=== PATIENT | male | born 1955 | race Caucasian/White ===

== ENCOUNTER 2017-07-17 19:15 | Inpatient (IN) ==
--- NOTE | 2017-07-17 20:06 | Emergency Department Note ---
Disposition Clinical Impression: Elevated blood pressure reading TIA (transient ischemic attack) Qualifiers: Transient cerebral ischemia type: unspecified Qualified Code(s): G45.9 - Transient cerebral ischemic attack, unspecified Disposition: Admitted As Inpatient Condition: Good General Adult HPI - General Chief complaint: ED Neuro Symptoms/Deficit Stated complaint: dizzy,headache,arms/legs tingling,trouble w/speech Time Seen by Provider: 07/17/17 19:51 Source: patient Limitations: no limitations Nursing Notes Reviewed: Yes Vital Signs Reviewed: Yes - History of Present Illness HPI Narrative: Patient presents for evaluation of garbled speech as well as right-sided numbness. Symptoms started at 7 PM. Symptoms lasted for approximately 5-10 minutes. Symptoms self resolved. Patient was driving at the time. Patient stopped and switched places with his . states that he was slow getting to his car but there was no obvious deficits. Patient had similar episode of garbled speech that lasted for several minutes in the past with outpatient head CT. Patient has not been admitted for further workup. Symptoms continue to be resolved at the time of evaluation. NIH stroke scale of 0. Concern for TIA. Patient has a history of hypertension as well as hypercholesterol. On daily aspirin. Pain Scale: 6 - Related Data Home Medications Medication Instructions Recorded Confirmed Allopurinol [Zyloprim 300 MG] 300 mg PO DAILY 07/17/17 07/17/17 Aspirin Enteric Coated [Aspirin EC] 81 mg PO DAILY 07/17/17 07/17/17 Cetirizine HCl [Zyrtec] 10 mg PO DAILY 07/17/17 07/17/17 Latanoprost [Xalatan] 1 drop OP HS 07/17/17 07/17/17 Levothyroxine [Synthroid] 25 mcg PO 0630 07/17/17 07/17/17 Lisinopril [Zestril] 10 mg PO DAILY 07/17/17 07/17/17 Meloxicam [Meloxicam] 15 mg PO DAILY 07/17/17 07/17/17 Omeprazole [PriLOSEC] 40 mg PO DAILY 07/17/17 07/17/17 Rosuvastatin Calcium [Rosuvastatin 10 mg PO HS 07/17/17 07/17/17 Calcium] Allergies Allergy/AdvReac Type Severity Reaction Status Date / Time No Known Allergies Allergy Verified 07/17/17 21:25 Review of Systems: CONSTITUTIONAL: No weight loss, fever, chills, weakness or fatigue. HEENT: Eyes: No visual changes. Ears, Nose, Throat: No hearing loss, difficulty talking or unable to swallow. SKIN: No rash or itching. CARDIOVASCULAR: No chest pain, chest pressure or chest discomfort. No palpitations or edema. RESPIRATORY: No shortness of breath, cough or sputum. GASTROINTESTINAL: No anorexia, nausea, vomiting or diarrhea. No abdominal pain or blood. GENITOURINARY: No burning on urination or hematuria. NEUROLOGICAL: Dysarthria with associated paresthesias the right side of his face and upper and lower extremity MUSCULOSKELETAL: No muscle pain, back pain, joint pain or stiffness. Past Medical History - Past Medical History Medical history: Reports: hyperlipidemia, hypertension Psychiatric history: Reports: no psych history - Social History Smoking Status: Never smoker Smokeless Tobacco Status: No Alcohol use: Reports: none Drug use: Reports: none Physical Exam - General Limitations: no limitations General appearance: alert, in no apparent distress - Head Head exam: atraumatic - Eye Eye exam: Present: normal appearance, PERRL, EOMI - ENT ENT exam: normal exam - Neck Neck exam: Present: normal inspection - Chest Chest inspection: Present: normal inspection, symmetric chest wall rise - Respiratory Respiratory exam: Present: normal lung sounds bilaterally. Absent: respiratory distress, wheezes - Cardiovascular Cardiovascular exam: Present: regular rate, normal rhythm - Abdominal Exam Abdominal exam: Present: soft, Non-Tender - Extremities Exam Extremities exam: Present: normal inspection. Absent: tenderness - Back Exam Back exam: Present: normal inspection. Absent: CVA tenderness (R), CVA tenderness (L) - Neurological Exam Neurological exam: Present: alert, oriented X3, CN II-XII intact, normal gait, motor sensory deficit - Expanded Neurological Exam Patient oriented to: Present: person, place, time Speech: Present: fluid speech Cranial nerves: EOM function (II, III, IV, ): Normal, facial sensation (V): Normal, facial palsy (VII): Normal, gag reflex (IX): Normal, spinal accessory function (XI): Normal, tongue deviation (XII): Normal Cerebellar function: finger to nose: Normal, heel to pimentel: Normal Cerebellar function: normal gait Motor strength - LUE: 5/5 Motor strength - RUE: 5/5 Motor strength - LLE: 5/5 Motor strength - RLE: 5/5 Coma Scale Eye Opening: Spontaneous Coma Scale Motor Response: Obeys Commands Coma Scale Verbal Response: Oriented Coma Scale Total: 15 - Psychiatric Psychiatric exam: Present: normal affect, normal mood - Skin Skin exam: Present: warm, dry, intact Course - Reevaluation(s) Reevaluation #1: Patient continues to remain asymptomatic. - Consultations Consultation #1: Discussed with Dr. Morton. Patient accepted for admission Vital Signs Temperature 98.4 F 07/17/17 19:42 Pulse Rate 77 07/17/17 19:42 Respiratory Rate 18 07/17/17 19:42 Blood Pressure 192/119 07/17/17 19:42 O2 Sat by Pulse Oximetry 96 07/17/17 19:42 Temperature 98.4 F 07/17/17 19:42 Pulse Rate 80 07/17/17 20:10 Respiratory Rate 12 07/17/17 21:58 Blood Pressure 148/98 07/17/17 21:58 O2 Sat by Pulse Oximetry 96 07/17/17 19:42 Oxygen Delivery Oxygen Delivery Room Air Medical Decision Making - Medical Records Medical records reviewed: Yes I reviewed the patient's medical records. - Lab Data Lab results reviewed: Yes I reviewed the patient's lab results. Result diagrams: 07/17/17 20:37 07/17/17 20:37 Lab Results 07/17/17 07/17/17 07/17/17 Range/Units 19:53 20:15 20:37 WBC 7.0 (4.3-11.1) K/mcL RBC 5.10 (4.19-5.50) M/mcL Hgb 15.5 (12.9-16.9) g/dL Hct 44.6 (37.5-50.1) % MCV 87.5 (83.0-100.0) fL MCH 30.4 (28.0-33.3) pg MCHC 34.8 (31.6-35.5) g/dL RDW 13.2 (11.5-14.5) % Plt Count 179 (140-400) K/mcL MPV 10.2 (9.4-12.4) fL Immature Gran % 0.3 (0-4) % Seg Neutrophils % 58.4 % Lymphocytes % 27.0 % Monocytes % 10.8 % Eosinophils % 2.6 % Basophils % 0.9 % Neutrophils # 4.1 (1.6-8.9) K/mcL Lymphocytes # 1.9 (0.6-4.6) K/mcL Monocytes # 0.8 (0.0-1.3) K/mcL Eosinophils # 0.2 (0.0-0.6) K/mcL Basophils # 0.1 (0.0-0.2) K/mcL Immature Plt Fraction 6.2 H (1.1-6.1) % PT (9.4-12.1) Seconds INR Sodium (136-145) mEq/L Potassium (3.5-4.5) mEq/L Chloride (98-109) mEq/L Carbon Dioxide (19-29) mEq/L BUN (8-26) mg/dL Creatinine (0.72-1.25) mg/dL Est GFR ( Amer) (> 60) Est GFR (Non-Af Amer) (> 60) BUN/Creatinine Ratio (6-26) Glucose (70-99) mg/dL POC Glucose 100 H (58-89) Calculated Osmolality (280-300) Calcium (8.6-10.8) mg/dL Troponin I (0-0.03) ng/mL Urine Color (Yellow) Urine Clarity (Clear) Urine pH (5.0-8.0) pH Units Ur Specific [place] (1.010-1.025) Urine Protein (Neg-Trace) mg/dL Urine Glucose (UA) (Normal) mg/dL Urine Ketones (Negative) mg/dL Urine Blood (Negative) Urine Nitrite (Negative) Urine Bilirubin (Negative) Urine Urobilinogen (Normal) mg/dL Ur Leukocyte Esterase (Negative) Ur Culture Indicated? (NO) Specimen Rejected Hemolyzed 07/17/17 07/17/17 07/17/17 Range/Units 20:37 20:37 20:37 WBC (4.3-11.1) K/mcL RBC (4.19-5.50) M/mcL Hgb (12.9-16.9) g/dL Hct (37.5-50.1) % MCV (83.0-100.0) fL MCH (28.0-33.3) pg MCHC (31.6-35.5) g/dL RDW (11.5-14.5) % Plt Count (140-400) K/mcL MPV (9.4-12.4) fL Immature Gran % (0-4) % Seg Neutrophils % % Lymphocytes % % Monocytes % % Eosinophils % % Basophils % % Neutrophils # (1.6-8.9) K/mcL Lymphocytes # (0.6-4.6) K/mcL Monocytes # (0.0-1.3) K/mcL Eosinophils # (0.0-0.6) K/mcL Basophils # (0.0-0.2) K/mcL Immature Plt Fraction (1.1-6.1) % PT 11.5 (9.4-12.1) Seconds INR 1.1 Sodium 139 (136-145) mEq/L Potassium 4.0 (3.5-4.5) mEq/L Chloride 105 (98-109) mEq/L Carbon Dioxide 25 (19-29) mEq/L BUN 18 (8-26) mg/dL Creatinine 1.36 H (0.72-1.25) mg/dL Est GFR ( Amer) > 60 (> 60) Est GFR (Non-Af Amer) 53 L (> 60) BUN/Creatinine Ratio 13 (6-26) Glucose 101 H (70-99) mg/dL POC Glucose (58-89) Calculated Osmolality 290 (280-300) Calcium 9.9 (8.6-10.8) mg/dL Troponin I 0.00 (0-0.03) ng/mL Urine Color (Yellow) Urine Clarity (Clear) Urine pH (5.0-8.0) pH Units Ur Specific [place] (1.010-1.025) Urine Protein (Neg-Trace) mg/dL Urine Glucose (UA) (Normal) mg/dL Urine Ketones (Negative) mg/dL Urine Blood (Negative) Urine Nitrite (Negative) Urine Bilirubin (Negative) Urine Urobilinogen (Normal) mg/dL Ur Leukocyte Esterase (Negative) Ur Culture Indicated? (NO) Specimen Rejected 07/17/17 Range/Units 21:45 WBC (4.3-11.1) K/mcL RBC (4.19-5.50) M/mcL Hgb (12.9-16.9) g/dL Hct (37.5-50.1) % MCV (83.0-100.0) fL MCH (28.0-33.3) pg MCHC (31.6-35.5) g/dL RDW (11.5-14.5) % Plt Count (140-400) K/mcL MPV (9.4-12.4) fL Immature Gran % (0-4) % Seg Neutrophils % % Lymphocytes % % Monocytes % % Eosinophils % % Basophils % % Neutrophils # (1.6-8.9) K/mcL Lymphocytes # (0.6-4.6) K/mcL Monocytes # (0.0-1.3) K/mcL Eosinophils # (0.0-0.6) K/mcL Basophils # (0.0-0.2) K/mcL Immature Plt Fraction (1.1-6.1) % PT (9.4-12.1) Seconds INR Sodium (136-145) mEq/L Potassium (3.5-4.5) mEq/L Chloride (98-109) mEq/L Carbon Dioxide (19-29) mEq/L BUN (8-26) mg/dL Creatinine (0.72-1.25) mg/dL Est GFR ( Amer) (> 60) Est GFR (Non-Af Amer) (> 60) BUN/Creatinine Ratio (6-26) Glucose (70-99) mg/dL POC Glucose (58-89) Calculated Osmolality (280-300) Calcium (8.6-10.8) mg/dL Troponin I (0-0.03) ng/mL Urine Color Yellow (Yellow) Urine Clarity Clear (Clear) Urine pH 5.5 (5.0-8.0) pH Units Ur Specific [place] 1.025 (1.010-1.025) Urine Protein Negative (Neg-Trace) mg/dL Urine Glucose (UA) Normal (Normal) mg/dL Urine Ketones Negative (Negative) mg/dL Urine Blood Negative (Negative) Urine Nitrite Negative (Negative) Urine Bilirubin Negative (Negative) Urine Urobilinogen Normal (Normal) mg/dL Ur Leukocyte Esterase Negative (Negative) Ur Culture Indicated? NO (NO) Specimen Rejected - Radiology Data Radiology results reviewed: Yes I reviewed the patient's radiology results. - EKG Data EKG #1 EKG attestation: Yes I reviewed and interpreted this EKG. EKG results narrative: EKG shows sinus rhythm with ventricular rate of 71. SD 174. QRS 106. QTC 399. Patient has no significant ST elevations or depressions. EKG unremarkable. No previous EKG for comparison. Attestation Statement - Attestation Attestation: I examined this patient and my medical decision-making was reviewed with the Resident Physician, Dr. Logan. I agree with the documented findings, disposition and treatment plan as described except to the extent set forth below. Patient is a 62-year-old white male with a history of hypertension and high cholesterol presents to the emergency department brought by his today for complaints of acute onset of garbled speech and right-sided numbness which occurred at approximately 7 PM. Symptoms were transient lasting 5-10 minutes and then had resolved. Patient on arrival is asymptomatic and denies any chest pain shortness of breath diaphoresis numbness tingling no slurred speech no facial droop no dizziness or vertigo. Patient denies any visual changes or headache at this time. Patient's states he has been under a great deal of stress as of recently due to his mothers declining health. Patient states he has had similar symptoms in the past and never came to the hospital but was seen by his family doctor and did have an outpatient CT scan done which was normal. No prior hospitalizations for evaluation of strokelike symptoms. Patient's NIH score on arrival he equal 0 symptoms concerning for TIA. I agree with patient's physical exam findings as documented. Patient was quite hypertensive on arrival but this improved clinically without treatment in the emergency department. Patient had an EKG performed which was without ischemic changes. Patient's noncontrast head CT and chest x-ray were within normal limits. H&H lab evaluation shows mild elevation in serum creatinine with no old value for comparison. Remainder of labs are unremarkable. Case was discussed with the hospitalist who accepted the patient for admission for further evaluation of TIA.
[2017-07-17 20:50] LABS: Basophils # 0.1 K/mcL (0.0-0.2); Basophils % 0.9 %; Eosinophils # 0.2 K/mcL (0.0-0.6); Eosinophils % 2.6 %; Hematocrit 44.6 % (37.5-50.1); Hemoglobin 15.5 g/dL (12.9-16.9); Immature Granulocytes % 0.3 % (0-4); Immature Platelets 6.2 % (1.1-6.1); Lymphocytes # 1.9 K/mcL (0.6-4.6); Mean Corpuscular HGB Conc 34.8 g/dL (31.6-35.5); Mean Corpuscular Hemoglobin 30.4 pg (28.0-33.3); Mean Corpuscular Volume 87.5 fL (83.0-100.0); Mean Platelet Volume 10.2 fL (9.4-12.4); Monocytes # 0.8 K/mcL (0.0-1.3); Monocytes % 10.8 %; Neutrophils # 4.1 K/mcL (1.6-8.9); Platelet Count 179 K/mcL (140-400); Red Cell Distribution Width 13.2 % (11.5-14.5); Segmented Neutrophils % 58.4 %
[2017-07-17 21:03] LABS: BUN/Creatinine Ratio 13 (6-26); Blood Urea Nitrogen 18 mg/dL (8-26); Calcium 9.9 mg/dL (8.6-10.8); Carbon Dioxide 25 mEq/L (19-29); Chloride 105 mEq/L (98-109); Glucose 101 mg/dL (70-99); Osmolality,Calculated 290 (280-300); Sodium 139 mEq/L (136-145); eGFR For African Americans > 60 (> 60); eGFR For Non-African Americans 53 (> 60)
[2017-07-17 21:11] LABS: INR 1.1; Prothrombin Time 11.5 Seconds (9.4-12.1)
[2017-07-17 22:17] LABS: Bilirubin,Urine Negative (Negative); Blood,Urine Negative (Negative); Clarity,Urine Clear (Clear); Color,Urine Yellow (Yellow); Glucose,Urine (UA) Normal (Normal); Ketones,Urine Negative (Negative); Leukocyte Esterase,Urine Negative (Negative); Nitrite,Urine Negative (Negative); PH,Urine 5.5 pH Units (5.0-8.0); Protein,Urine Negative (Neg-Trace); Specific Gravity,Urine 1.025 (1.010-1.025); Urobilinogen,Urine Normal (Normal)
[2017-07-17] MEDS ORDERED: Acetaminophen 325 MG TABLET PO PRN (23:19)
[2017-07-17] MEDS ORDERED: *HR* Morphine 2 MG/ML SYRINGE IVP PRN (23:19)
[2017-07-17] MEDS ORDERED: Naloxone 0.4 MG/ML INJ IVP PRN (23:19)
--- NOTE | 2017-07-17 23:28 | Internal Med History&Physical ---
Date of Encounter: 07/18/17 Time of Encounter: 23:27 Assessment and Plan (1) TIA (transient ischemic attack) Current visit: Yes Status: Acute Suspected Obtain Brain MRI, ECHO, carotid doppler Patient has no neurologic deficits on exam and symptoms resolved prior to arrival Continue home doses of ASA and Crestor Obtain lipis panel a.m No indication for Speech/PT/OT/Neuro eval at this time Qualifiers: Transient cerebral ischemia type: unspecified Qualified Code(s): G45.9 - Transient cerebral ischemic attack, unspecified (2) HTN (hypertension) Current visit: Yes Status: Chronic Uncontrolled Resume home meds and titrate prn Qualifiers: Hypertension type: essential hypertension Qualified Code(s): I10 - Essential (primary) hypertension (3) HLD (hyperlipidemia) Current visit: Yes Status: Chronic check lipid panel a.m COntinue Crestor Qualifiers: Hyperlipidemia type: unspecified Qualified Code(s): E78.5 - Hyperlipidemia , unspecified (4) Renal insufficiency Current visit: Yes Status: Acute CR 1.36 on presentation BUN is WNL. Other electrolytes WNL UA is unremarkable No prior hx of renal disease Patient taking NSAIDS and ACEI at home D/C NSAIDS IVF Check renal USS Repeat Chem am Internal Medicine - H&P: HPI Chief complaint: Right hand numbness, garbled speech Admitted From: Home Plans for Post Hospital Care: Home History of present illness: Mr. Tafoya is a 62 year old male with PMH of HTN, HLD, Hypothyroidism Seen and evaluated at bedside with spouse He was driving around 7p,m when he experienced numbness of his right hand and arm, and when he tried to speak, his words were not clear, this was witnessed by his who switched places with him. He states all his symptoms resolved within 20-30 minutes At time of review, he had no neurologic symptoms. He reports history of same , with outpatient head CT that was negative. He reports compliance with his medications. Denies palpitations, chest pain, abdominal symptoms. ROS is not contributory Admitting EKG and Head CT unremarkable, labs unremarkable. Blood pressure on presentation was elevated to 192/119, spontaneously improved at time of review Past Med Surg Social Fam HX - Past Medical History Medical history: hyperlipidemia, hypertension Psychiatric history: no psych history - Social History Smoking Status: Never smoker Smokeless Tobacco Status: No Alcohol use: none Drug use: none - Family History Mother Hx Family Neurologic Disorders: Yes (TRANSIENT ISCHEMIC ATTACK.) Internal Medicine - H&P: Meds Allopurinol [Zyloprim 300 MG] 300 mg PO DAILY 07/17/17 [History] Aspirin Enteric Coated [Aspirin EC] 81 mg PO DAILY 07/17/17 [History] Cetirizine HCl [Zyrtec] 10 mg PO DAILY 07/17/17 [History] Latanoprost [Xalatan] 1 drop OP HS 07/17/17 [History] Levothyroxine [Synthroid] 25 mcg PO 0630 07/17/17 [History] Lisinopril [Zestril] 10 mg PO DAILY 07/17/17 [History] Meloxicam [Meloxicam] 15 mg PO DAILY 07/17/17 [History] Omeprazole [PriLOSEC] 40 mg PO DAILY 07/17/17 [History] Rosuvastatin Calcium [Rosuvastatin Calcium] 10 mg PO HS 07/17/17 [History] 3 Allergy/AdvReac Type Severity Reaction Status Date / Time No Known Allergies Allergy Verified 07/17/17 21:25 All Systems PM: A 10-system review of systems was performed and is negative for pertinent findings except as documented above in the HPI. - Constitutional Constitutional: as per HPI - EENT Eyes: as per HPI Ears: as per HPI Nose, mouth and throat: as per HPI - Cardiovascular Cardiovascular ROS IM: as per HPI - Respiratory Respiratory: as per HPI - Gastrointestinal Gastrointestinal: no abdominal pain, no diarrhea, no hematemesis, no hematochezia, no melena, no nausea, no vomiting - Musculoskeletal Musculoskeletal ROS IM: no numbness, no tingling - Integumentary Integumentary IM: no rash, no unusual bruising - Neurological Neurological ROS: as per HPI - Hematologic/Lymphatic Hematologic/Lymphatic: no easy bruising - Constitutional Vitals: Temp Pulse Resp BP Pulse Ox 98.3 F 65 16 153/92 96 07/17/17 23:11 07/17/17 23:11 07/17/17 23:11 07/17/17 23:11 07/17/17 23:11 General appearance: Present: A&O X 3, pleasant, no acute distress, obese - Head Head exam: Present: atraumatic, normocephalic - Eye Eye exam: Present: PERRL, conjuntiva pink, sclera anicteric Pupils: Present: PERRL - Neck Neck exam general surgery: Present: supple, trachea midline. Absent: lymphadenopathy - Respiratory Respiratory exam: Present: CTAB. Absent: accessory muscle use, rales, rhonchi, wheezes - Cardiovascular Cardiovascular exam: Present: RRR, +S1, +S2. Absent: diastolic murmur, gallop, rubs, systolic murmur - GI/Abdominal GI/Abdominal exam: Present: normal bowel sounds, soft, no peritoneal signs. Absent: distended, tenderness - Extremities Exam Extremities exam: Present: warm, radial pulses palpable and symmetrical. Absent : calf tenderness, cyanotic, pedal edema - Neurological Exam Neurological exam: Present: alert, CN II-XII intact, oriented X3, no focal deficits. Absent: pronater drift, facial droop, speech deficit - Skin Skin exam: Present: dry, intact Internal Med - H&P Results - Labs CBC & Chem 7: 07/17/17 20:37 07/17/17 20:37
[2017-07-18 06:18] LABS: BUN/Creatinine Ratio 13 (6-26); Blood Urea Nitrogen 18 mg/dL (8-26); Calcium 9.5 mg/dL (8.6-10.8); Carbon Dioxide 28 mEq/L (19-29); Chloride 105 mEq/L (98-109); Chol/HDL Ratio 4.2 (0-4.9); Cholesterol 140 mg/dL (< 200); Glucose 102 mg/dL (70-99); HDL Cholesterol 33 mg/dL (40-59); LDL Cholesterol,Calculated 80 mg/dL (0-99); Osmolality,Calculated 292 (280-300); Potassium 3.8 mEq/L (3.5-4.5); Sodium 140 mEq/L (136-145); Triglycerides 135 mg/dL (< 150); eGFR For African Americans > 60 (> 60); eGFR For Non-African Americans 53 (> 60)
[2017-07-18] MEDS: Aspirin Enteric Coated 81 MG Tablet PO SCH (08:22)
[2017-07-18] MEDS: Levothyroxine 25 MCG TABLET PO SCH (08:22)
[2017-07-18] MEDS: Loratadine 10 MG TABLET PO SCH (08:23)
[2017-07-18] MEDS: 0.9 % Sodium Chloride 1,000 ML IVC SCH ×2 (11:43→23:18)
--- NOTE | 2017-07-18 17:22 | Internal Med Progress Note ---
Date of Encounter: 07/18/17 Time of Encounter: 11:00 - Assessment and plan (1) CVA (cerebral vascular accident) Current Visit: Yes Status: Acute Assessment and plan: Roger Tafoya is a 62 y/o male with PMH HTN and obesity who presented to [facility] on 07/17/2017 with complaints of bilateral upper ext and right lower numbness and tingling. He was found to have an acute CVA and was admitted for further work-up and treatment. 1. CVA: presented with transient numbness and tingling to bilateral upper extremities. MRI brain with microinfartcs to bilateral frontal lobes. Neurologically intact, no deficit. On ASA at . TTE, bilateral carotids, Hgb A1c and LDL pending. Neurology who recommends adding Plavix and JYOTI to assess for embolic source 2. RAFI: Cr 1.03, no hx renal disease. Suspect pre-renal with poor PO intact and use of KOBE. IV fluids, stop KOBE, renal US pending. Monitor repeat CMP 3. Hypertension: per hx. Holding home BP medications to allow for permissive HTN (SBP up to 180). 4. 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 Information obtained from chart review and patient report. Says he is back to baseline and wants to discharge home. Made him aware of MRI results and he is agreeable to stay for Neurology evaluation - Constitutional Vitals: Temp Pulse Resp BP Pulse Ox 98.0 F 86 14 146/87 96 07/18/17 15:04 07/18/17 15:04 07/18/17 15:04 07/18/17 15:04 07/18/17 15:04 General appearance: Present: A&O X 3, pleasant, no acute distress, obese - Head Head exam: Present: atraumatic, normocephalic - Eye Eye exam: Present: PERRL, conjuntiva pink, sclera anicteric Pupils: Present: PERRL - Neck Neck exam general surgery: Present: supple, trachea midline. Absent: lymphadenopathy - Respiratory Respiratory exam: Present: CTAB. Absent: accessory muscle use, rales, rhonchi, wheezes - Cardiovascular Cardiovascular exam: Present: RRR, +S1, +S2. Absent: diastolic murmur, gallop, rubs, systolic murmur - GI/Abdominal GI/Abdominal exam: Present: normal bowel sounds, soft, no peritoneal signs. Absent: distended, tenderness - Extremities Exam Extremities exam: Present: warm, radial pulses palpable and symmetrical. Absent : calf tenderness, cyanotic, pedal edema - Neurological Exam Neurological exam: Present: CN II-XII intact, oriented X3, no focal deficits. Absent: pronater drift, facial droop, speech deficit - Skin Skin exam: Present: dry, intact Internal Medicine: Result - Labs CBC & Chem 7: 07/17/17 20:37 07/18/17 04:40 Labs: BMP 07/18/17 04:40 Sodium 140 Potassium 3.8 Chloride 105 Carbon Dioxide 28 BUN 18 Creatinine 1.36 H Glucose 102 H Calcium 9.5 - ABG Interpretation ABG results: PT/INR, D-dimer PT 11.5 Seconds (9.4-12.1) 07/17/17 20:37 - Impressions Impressions Brain MRI 07/17/17 23:20 IMPRESSION: Acute microinfarcts within the left and right frontal lobes. The findings were sent to the Radiology Results Communication Center at 3:35 pm on 07/18/2017to be communicated to a licensed caregiver. D/ / Byron Bishop MD / Byron Bishop MD Interpreting Provider: Byron Bishop MD Retroperitoneum Ultrasound 07/18/17 15:30 IMPRESSION: Unremarkable bilateral renal ultrasound. Unremarkable urinary bladder ultrasound with small postvoid residual. D/ / Jac Choudhury MD / Jac Choudhury MD Interpreting Provider: Jac Choudhury MD Consult Discharge Plan - Plan Referrals: NONE,PCP [Primary Care Provider] -
--- NOTE | 2017-07-18 17:39 | Neurology - Consult Note ---
Date of Encounter: 07/18/17 Time of Encounter: 17:38 Assessment and Plan (1) CVA (cerebral vascular accident) Current Visit: Yes Status: Acute This patient with HTN, obesity, NELLY on CPAP who developed acute onset of focal neurological deficits, right hand numbness, speech difficulty, likely related to new cerebral infarct, evidenced on the MRI of bran. The acute cerebral infarct involve both hemisphere therefore indicate likely embolic phenomenon. He was on Aspirin 81mg daily prior to stroke. Will add plavix 75mg daily. Permissive HTN in acute phase (7-10 day). Continue statin therapy. Recommend JYOTI looking for source of emboli. Await carotid artery duplex study. Patient lives two hours away. 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 Continue home CPAP therapy for NELLY. Weight loss encouraged Qualifiers: CVA mechanism: unspecified Qualified Code(s): I63.9 - Cerebral infarction, unspecified History of Present Illness Chief complaint: right hand numbness and speech difficulty HPI: Mr. Tafoya is a 62 year old male with PMH significant for HTN, NELLY on CPAP, obesity and HDL who developed acute onset of right hand numbness and speech difficulty when driving. This occurred yesterday at around 7pm when driving. Reports right hand numbness and then had trouble with his words and his then took over the driving and brought him to ER here at [facility]. By the time he arrived here his symptoms apparently resolved. Initial CT of head showed no acute intracranial abnormality. Subsequently he had MRI of brain which reported 'Acute microinfarcts within the left and right frontal lobes.' Patient has history of HTN and NELLY and uses a CPAP at home. He has no history of atrial fibrillation or other types of cardiac dysarrhythmia, he does have heart murmur when younger. Past Med Surg Social Fam HX - Past Medical History Medical history: hyperlipidemia, hypertension Psychiatric history: no psych history - Social History Smoking Status: Never smoker Smokeless Tobacco Status: No Alcohol use: none Drug use: none - Family History Mother Hx Family Neurologic Disorders: Yes (TRANSIENT ISCHEMIC ATTACK.) Medications and Allergies Allopurinol [Zyloprim 300 MG] 300 mg PO DAILY 07/17/17 [History] Aspirin Enteric Coated [Aspirin EC] 81 mg PO DAILY 07/17/17 [History] Cetirizine HCl [Zyrtec] 10 mg PO DAILY 07/17/17 [History] Latanoprost [Xalatan] 1 drop OP HS 07/17/17 [History] Levothyroxine [Synthroid] 25 mcg PO 0630 07/17/17 [History] Lisinopril [Zestril] 10 mg PO DAILY 07/17/17 [History] Meloxicam [Meloxicam] 15 mg PO DAILY 07/17/17 [History] Omeprazole [PriLOSEC] 40 mg PO DAILY 07/17/17 [History] Rosuvastatin Calcium [Rosuvastatin Calcium] 10 mg PO HS 07/17/17 [History] 3 Allergy/AdvReac Type Severity Reaction Status Date / Time No Known Allergies Allergy Verified 07/17/17 21:25 All Systems: A 10-system review of systems was performed and is negative for pertinent findings except as documented above in the HPI. 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, hip flexors, tibialis Anterior, quadriceps, toe extension (EHL), plantarflexion Motor examination - left side: 5/5: deltoids, biceps, triceps, wrist flexion, wrist extension, hip flexors, 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 member, quadriceps, tibialis Anterior, toe extension (EHL), plantarflexion Reflexes: Biceps: 2+, Triceps: 2+, Brachioradialis: 2+, Patella: 2+, Achilles: 2 + Mental Status Examination: awake, alert, oriented to person, oriented to place, oriented to time, follows commands appropriately, answers questions appropriately, no agnosia, no aphasia, no aproxia Cranial nerve examination: PERRL, EOMI, visual hazel intact, corneal reflexes brisk symmetrically, sensory to face intact, mastication intact, no facial asymmetry is present, no dysarthria, hearing is intact symmetrically, soft palate elevates bilaterally upon phonation, gag reflex intact, flexes SCM and trapezius muscles symmetrically with full power, tongue protrudes midline, no atrophy or facial fasiculations present Cerebellar examination: no dysmetria, performs finger to nose and heel to pimentel symmetrically without ataxia, no gait ataxia, no truncal ataxia, no difficulty with rapid alternating movements Results - Laboratory Findings CBC and BMP: 07/17/17 20:37 07/18/17 04:40 Abnormal lab findings: Abnormal lab results Immature Plt Fraction 6.2 % (1.1-6.1) H 07/17/17 20:37 Creatinine 1.36 mg/dL (0.72-1.25) H 07/18/17 04:40 Est GFR (Non-Af Amer) 53 (> 60) L 07/18/17 04:40 Glucose 102 mg/dL (70-99) H 07/18/17 04:40 POC Glucose 100 (58-89) H 07/17/17 19:53 HDL Cholesterol 33 mg/dL (40-59) L 07/18/17 04:40 Consult Discharge Plan - Plan Referrals: NONE,PCP [Primary Care Provider] -
--- NOTE | 2017-07-18 18:03 | Electrocardiograph Report ---
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
[2017-07-18] MEDS ORDERED: Latanoprost 2.5 ML BOTTLE RIGHT EYE SCH (21:00)
[2017-07-19 03:59] LABS: Hematocrit 44.6 % (37.5-50.1); Hemoglobin 15.4 g/dL (12.9-16.9); Mean Corpuscular HGB Conc 34.5 g/dL (31.6-35.5); Mean Corpuscular Hemoglobin 30.5 pg (28.0-33.3); Mean Corpuscular Volume 88.3 fL (83.0-100.0); Mean Platelet Volume 10.4 fL (9.4-12.4); Platelet Count 167 K/mcL (140-400); Red Blood Count 5.05 M/mcL (4.19-5.50); Red Cell Distribution Width 13.2 % (11.5-14.5)
[2017-07-19 04:14] LABS: Hemoglobin A1C 5.6 %
[2017-07-19 04:17] LABS: BUN/Creatinine Ratio 13 (6-26); Blood Urea Nitrogen 16 mg/dL (8-26); Calcium 9.2 mg/dL (8.6-10.8); Carbon Dioxide 25 mEq/L (19-29); Chloride 107 mEq/L (98-109); Glucose 108 mg/dL (70-99); Osmolality,Calculated 292 (280-300); Potassium 3.9 mEq/L (3.5-4.5); Sodium 140 mEq/L (136-145); eGFR For African Americans > 60 (> 60); eGFR For Non-African Americans 57 (> 60)
[2017-07-19] MEDS: Levothyroxine 25 MCG TABLET PO SCH ×2 (05:30→12:57)
[2017-07-19] MEDS ORDERED: Lidocaine Viscous Oral Soln 15 ML SOLUTION MM PRN (10:08)
[2017-07-19] MEDS ORDERED: *HR* Midazolam HCl 2 MG/2 ML VIAL IVP PRN (10:09)
[2017-07-19] MEDS ORDERED: Tetracaine/Benzocaine/Butamben 200MG/SPRAY (100SPY/BOT) MM ONE (10:09)
[2017-07-19] MEDS ORDERED: 0.9 % Sodium Chloride 500 ML IVC ONE (10:09)
[2017-07-19] MEDS ORDERED: *HR* Midazolam HCl 5 MG/5 ML VIAL IVP ONE ×3 (10:46→10:47)
[2017-07-19] MEDS: *HR* FentaNYL (PF) 100 MCG/2 ML VIAL IVP PRN ×3 (11:00→11:10)
[2017-07-19] MEDS ORDERED: amLODIPine 5 MG TABLET PO SCH (12:30)
[2017-07-19] MEDS: Aspirin Enteric Coated 81 MG Tablet PO SCH (12:57)
[2017-07-19] MEDS: Loratadine 10 MG TABLET PO SCH (12:57)
--- NOTE | 2017-07-19 15:40 | Discharge Summary ---
Date of Encounter: 07/19/17 Time of Encounter: 15:31 - Discharge Diagnosis (1) CVA (cerebral vascular accident) Priority: Primary Status: Acute Comments: Roger Tafoya is a 62 y/o male with PMH HTN and obesity who presented to [facility] on 07/17/2017 with complaints of bilateral upper ext and right lower numbness and tingling. He was found to have an acute CVA and was admitted for further work-up and treatment. 1. CVA: presented with transient numbness and tingling to bilateral upper extremities and right leg. MRI brain with bilateral frontal lobe microinfarcts. Bilateral carotid Dopplers essentially normal, JYOTI with normal [place], no PFO, no cardiac source of emboli. Hgb A1c 5.4%, LDL 80. Remained neurologically intact, no deficit. Evaluated by Neurology who recommended ASA, Plavix. Will need outpatient Cardiology evaluation for long-term arrhythmia monitoring 2. RAFI: Cr 1.36 on admission, no hx renal disease. Possibly pre-renal with poor PO intact and use of KOBE. Cr only minimally improved with IV fluids. Renal US unremarkable. Suspect he may have component of chronic kidney disease. Home KOBE stopped. Recommend repeat CMP within one week with PCP. He may benefit from Nephrology referral 3. Hypertension: per hx. Home KOBE stopped with RAFI. Add low dose amlodipine. Recommend follow-up with PCP within one week for BP recheck. 4. NELLY: per hx. Cont home BiPAP 5. Gout: per hx. recommend stopping meloxicam now that he is on dual antiplatelet therapy. Continue allopurinol. He may benefit from Rheumatology referral Qualifiers: CVA mechanism: embolism Precerebral and cerebral artery: unspecified cerebral artery Qualified Code(s): I63.40 - Cerebral infarction due to embolism of unspecified cerebral artery (2) HTN (hypertension) Priority: Primary Status: Chronic Qualifiers: Hypertension type: essential hypertension Qualified Code(s): I10 - Essential (primary) hypertension (3) Renal insufficiency Priority: Primary Status: Acute - Discharge Medications Prescriptions: amLODIPine [Norvasc] 10 mg PO DAILY #60 tablet Clopidogrel [Plavix] 75 mg PO QPM #30 tablet Home Medications: Allopurinol [Zyloprim 300 MG] 300 mg PO DAILY 07/17/17 [History] Aspirin Enteric Coated [Aspirin EC] 81 mg PO DAILY 07/17/17 [History] Cetirizine HCl [Zyrtec] 10 mg PO DAILY 07/17/17 [History] Latanoprost [Xalatan] 1 drop OP HS 07/17/17 [History] Levothyroxine [Synthroid] 25 mcg PO 0630 07/17/17 [History] Omeprazole [PriLOSEC] 40 mg PO DAILY 07/17/17 [History] Rosuvastatin Calcium 10 mg PO HS 07/17/17 [History] Clopidogrel [Plavix] 75 mg PO QPM #30 tablet 07/19/17 [Rx] amLODIPine [Norvasc] 10 mg PO DAILY #60 tablet 07/19/17 [Rx] Allergies/Adverse Reactions: 3 Allergy/AdvReac Type Severity Reaction Status Date / Time No Known Allergies Allergy Verified 07/17/17 21:25 Procedures/tests Complete & Pending: Procedures Performed prior 72 hours Category Date Time Status EV JYOTI transesophageal echo Routine Y 07/19/17 17:42 Completed Date of admission: 07/18/17 17:19 Primary care physician: PCP NONE Discharging clinician: Leigh Ann Grey Anticipated date of discharge: 07/19/17 - Patient Status Disposition: Home, Self-Care Condition: Good Functional capacity at discharge: independent ambulation Overall status at discharge: patient is back to baseline - Discharge Instructions Instructions: Ischemic Stroke (DC), Hypertension (DC), Aspirin (By mouth), Clopidogrel (By mouth) Follow Up With: NONE,PCP [Primary Care Provider] - Additional Instructions: Please call your PCP within 24 hours her next business day for follow-up appointment. Your blood pressure medication was changed and you should have your blood pressure checked. He will also had acute kidney injury and recommend repeating lab work within one week. Please obtain referral from PCP for Cardiology, Nephrology and Neurology - Diet and Activity Activity: increase activity as tolerated Diet: low fat, low cholesterol Interval History: Seen and examined at bedside. Patient says he feels back to baseline and would like to be discharged home today. He lives an hour and a half to 2 hours away and says he will follow up with nephrology, cardiology and neurology closer to home. Reports intermittent headache otherwise has no complaints. Specifically denies blurred or double vision, no paresthesias, no weakness. No chest pain or shortness of breath. Hospital course: Mr. Tafoya is a 62 year old male Time spent discussing smoking cessation with patient: more than 10 minutes (38 minutes spent on discharge.) - Time Spent with Patient Total time spent providing and/or coordinating discharge services: - Constitutional Vitals: Temp Pulse Resp BP Pulse Ox 97.9 F 76 16 164/99 96 07/19/17 10:35 07/19/17 12:51 07/19/17 12:51 07/19/17 12:51 07/19/17 10:35 General appearance: Present: A&O X 3, pleasant, no acute distress, obese - Head Head exam: Present: atraumatic, normocephalic - Eye Eye exam: Present: PERRL, conjuntiva pink, sclera anicteric Pupils: Present: PERRL - Neck Neck exam general surgery: Present: supple, trachea midline. Absent: lymphadenopathy - Respiratory Respiratory exam: Present: CTAB. Absent: accessory muscle use, rales, rhonchi, wheezes - Cardiovascular Cardiovascular exam: Present: RRR, +S1, +S2. Absent: diastolic murmur, gallop, rubs, systolic murmur - GI/Abdominal GI/Abdominal exam: Present: normal bowel sounds, soft, no peritoneal signs. Absent: distended, tenderness - Extremities Exam Extremities exam: Present: warm, radial pulses palpable and symmetrical. Absent : calf tenderness, cyanotic, pedal edema - Neurological Exam Neurological exam: Present: CN II-XII intact, oriented X3, no focal deficits. Absent: pronater drift, facial droop, speech deficit - Skin Skin exam: Present: dry, intact
[2017-07-19 16:32] VITALS: BP 162/96
== END 2017-07-19 17:32 | disposition home or self-care (01) | DRG 65 ==
LOC: 3BNU 19:15 → EMEROO 19:15 → 3BNU 22:48
PROVIDERS: ADMIT Registered Nurse; ATTEND Registered Nurse